=== PATIENT | female | born 1975 | race Caucasian/White ===

== ENCOUNTER 2016-09-04 10:34 | Outpatient (CLI) | payer BC ==
--- NOTE | 2016-09-04 11:12 | DIAGNOSTIC IMAGING REPORT ---
PROCEDURE: XR LUMBAR SPINE 2 OR 3 VIEWS INDICATION: LOW BACK PAIN/ SACRAL PAIN ON THE RT TECHNIQUE: Three views. COMPARISON: None. FINDINGS: Osseous structures and disc spaces are normal. No evidence of an acute process or fracture. IMPRESSION: 1. Negative lumbar spine.
== END 2016-09-04 23:00 ==
LOC: XR SRH 10:34
DX: M54.5 Low back pain (principal)